=== PATIENT | female | born 1970 | race Caucasian/White ===

== ENCOUNTER → 2016-08-28 | Outpatient (CLI) | payer OTHER | END | disposition home or self-care (01) | LOC: GMAJ 10:33 | PROVIDERS: ATTEND Family Medicine | DX: Z79.899 Other long term (current) drug therapy (principal) ==

== ENCOUNTER → 2017-01-18 | Outpatient (CLI) | payer BC | LOC: GMA 21:03 | PROVIDERS: ATTEND Nurse Practitioner Acute Care | DX: N30.00 Acute cystitis without hematuria (principal) ==

== ENCOUNTER → 2017-02-18 | Outpatient (CLI) | payer BC | END | disposition home or self-care (01) | LOC: MAMMO 13:07 | PROVIDERS: ATTEND Obstetrics & Gynecology Female Pelvic Medicine and Reconstructive Surgery | DX: Z12.31 Encounter for screening mammogram for malignant neoplasm of breast (principal) ==

== ENCOUNTER → 2018-04-04 | Outpatient (CLI) | payer BC ==
--- NOTE | 2018-04-05 17:09 | MAM ---
EXAM DESCRIPTION: 3D Screening BILATERAL : Digital Mammography. CLINICAL HISTORY: 47 years Female ANNUAL SCREENING . No complaints. No personal or family history of breast cancer. Childbirth. Postmenopausal years. No HRT. Lifetime risk of developing breast cancer (Tyrer-Cuzick model)(%): 6.7. COMPARISON: Bilateral screening digital breast tomosynthesis 02/18/2017. TECHNIQUE: Bilateral CC and MLO projection full-field images, digital tomosynthesis mammographic technique. Bilateral digital 2-D full-field MLO images. CAD not available for tomosynthesis or 2-D images. FINDINGS: The breast parenchymal density pattern is: Scattered areas of fibroglandular density. No skin thickening or nipple retraction. Bilateral microcalcifications and coarse calcifications. Small lymph nodes in the right axillary tail. No new focal, stellate mass or density, focal asymmetry , and no suspicious microcalcifications bilaterally. Stable mammograms compared to prior study. IMPRESSION: Benign exam. BIRAD CATEGORY: 2 BENIGN FINDINGS. RECOMMENDATIONS: FOLLOW UP: Routine digital bilateral mammographic screening, one year interval from March 2018. Written communication explaining the IMPRESSION and follow-up, will be mailed to the patient and referring health care provider. According to the [employer], yearly mammograms are recommended starting at age 40 and continuing as long as a woman is in good health. Any breast change noted on a breast self-exam should be reported promptly to the patient's healthcare provider. Breast MRI is recommended for women with an approximately 20-25% or greater lifetime risk of breast cancer, including women with a strong family history of breast or ovarian cancer and women who have been treated for Hodgkin's disease. A negative mammographic report should not delay tissue diagnosis in patients with significant clinical history or physical findings. Extremely dense breast tissue limits the sensitivity of digital mammography. Electronically signed by: Quinton Marcelino MD 04/05/2018 5:06 PM [employer]ESSURE SUPERVISOR
== END ==
LOC: MAMMO 13:01
PROVIDERS: ATTEND Obstetrics & Gynecology Female Pelvic Medicine and Reconstructive Surgery
DX: Z12.31 Encounter for screening mammogram for malignant neoplasm of breast (principal)

== ENCOUNTER → 2018-09-09 | Outpatient (CLI) | payer BC ==
--- NOTE | 2018-09-09 13:47 | MRI ---
EXAM DESCRIPTION: Knee,Left CLINICAL HISTORY: PAIN IN LEFT KNEE COMPARISON: Left knee radiograph 08/18/2018.. TECHNIQUE: MRI of the left knee is performed with multiplanar multi sequence imaging, without intravenous contrast. FINDINGS: Bone and joint: No focal bony contusion or acute fracture. Partially joint effusion is present. Cartilage: Grade 2-3 chondromalacia of the lateral knee compartment. Patchy areas of near full-thickness cartilage loss at the medial knee compartment. Grade 3 chondral fissuring of the patellar apex and patella facet. Medial meniscus: Displaced posterior horn medial meniscus tear with displaced meniscal fragment within the intercondylar notch anterior to the PCL. Lateral meniscus: Intact Anterior cruciate ligament: Intact Posterior cruciate ligament:Intact Medial collateral ligament:Intact. Mild periligamentous edema medial collateral ligament, nonspecific but likely represents a grade 1 MCL sprain. Lateral collateral ligament:Intact Popliteus tendon: Intact Biceps femoris tendon: Intact Iliotibial band: Intact Medial and lateral retinaculum: Intact Extensor mechanism: Distal quadriceps and patellar tendons are intact. Mild distal patellar tendinosis. Soft tissues: No Henderson's cyst. No solid or cystic mass. Mild prepatellar edema. IMPRESSION: 1. Left medial meniscus posterior horn tear with displaced meniscal fragment into the intercondylar notch. 2. Grade 1 MCL sprain. 3. Moderate left knee osteoarthrosis with high-grade chondrosis involving the medial knee compartment. Associated moderate size knee joint effusion. 4. Mild prepatellar bursitis. Electronically signed by: Mathew Lund DO 09/09/2018 1:46 PM CDT
== END ==
LOC: MRI 07:58
PROVIDERS: ATTEND Family Medicine
DX: S83.242A Other tear of medial meniscus, current injury, left knee, initial encounter (principal); S83.412A Sprain of medial collateral ligament of left knee, initial encounter; M17.12 Unilateral primary osteoarthritis, left knee; M70.42 Prepatellar bursitis, left knee

== ENCOUNTER → 2018-09-15 | Outpatient (CLI) | payer BC ==
--- NOTE | 2018-09-15 10:42 | RAD ---
EXAM DESCRIPTION: Knee,Left 1 or 2 Views CLINICAL HISTORY: 47 years Female, M25.562 TECHNIQUE: 2 views of the left knee were performed. COMPARISON: None available. FINDINGS: The visualized bones appear well mineralized. No acute fracture or dislocation. The medial and lateral compartment joint space are well-maintained. The soft tissues appear grossly unremarkable. IMPRESSION: 1. No acute fracture or dislocation. Electronically signed by: Albert Geronimo MD 09/15/2018 10:40 AM CDT
--- NOTE | 2018-09-15 11:01 | RAD ---
EXAM DESCRIPTION: Pelvis CLINICAL HISTORY: 47 years Female, M25.562 COMPARISON: CT abdomen pelvis dated June 13, 2014. TECHNIQUE: AP radiograph of the pelvis was performed. FINDINGS: The pelvic ring appears grossly intact on this single AP radiograph. Bilateral sacroiliac joints appear normal. Bilateral hip joints appear normal. The visualized lumbo-sacral spine appears grossly unremarkable. IMPRESSION: Single AP radiograph of the pelvis demonstrates grossly intact pelvic ring. Electronically signed by: Albert Geronimo MD 09/15/2018 10:59 AM CDT
== END ==
LOC: RAD 08:09
PROVIDERS: ATTEND Orthopaedic Surgery
DX: M25.562 Pain in left knee (principal); M25.552 Pain in left hip

== ENCOUNTER → 2018-09-26 | Outpatient (CLI) | payer BC | LOC: LAB.O 11:57 | PROVIDERS: ATTEND Orthopaedic Surgery | DX: Z01.818 Encounter for other preprocedural examination (principal) ==

== ENCOUNTER 2018-10-05 05:26 | Day surgery (SDC) | payer BC ==
[2018-10-05] MEDS ORDERED: PROPOFOL 200 MG/20 ML VIAL IV ONE (07:00)
[2018-10-05] MEDS ORDERED: KETOROLAC TROMETHAMINE INJ 30 MG/ML VIAL ONE (07:00)
[2018-10-05] MEDS ORDERED: ONDANSETRON INJ 4 MG/2 ML VIAL ONE (07:00)
[2018-10-05] MEDS ORDERED: raNITIdine HCL INJ 25 MG/ML VIAL ONE (07:00)
[2018-10-05] MEDS ORDERED: METOCLOPRAMIDE HCL INJ 10 MG/2 ML VIAL ONE (07:00)
[2018-10-05] MEDS ORDERED: DEXAMETHASONE INJ 10 MG/ML VIAL ONE (07:00)
[2018-10-05] MEDS ORDERED: SODIUM CHL 0.9% 100ML MINI-BAG 100 ML IVPB ONE (09:14)
[2018-10-05] MEDS ORDERED: ceFAZolin SODIUM 1 GM VIAL ONE ×2 (09:14→13:47)
[2018-10-05] MEDS ORDERED: LACTATED RINGERS 1,000 ML ONE (09:14)
[2018-10-05] MEDS ORDERED: MIDAZOLAM INJ 2 MG/2 ML VIAL ONE (13:42)
[2018-10-05] MEDS ORDERED: fentaNYL CITRATE INJ 50 MCG/ML AMP ONE (13:43)
[2018-10-05] MEDS: ceFAZolin SODIUM 1 GM VIAL ONE ×2 (14:32→14:59)
[2018-10-05] MEDS: BUPIVACAINE LIPOSOME 13.3 MG/ML VIAL INJ ONE ×2 (14:32→14:59)
[2018-10-05] MEDS: BUPIVACAINE 0.5% 30 ML VIAL INJ ONE ×2 (14:32→14:59)
[2018-10-05] MEDS: VANCOMYCIN HCL INJ 1,000 MG VIAL IVPB ONE ×2 (14:33→14:59)
[2018-10-05] MEDS ORDERED: HYDROmorphone HCL INJ 2 MG/ML VIAL ONE (15:28)
[2018-10-05] MEDS ORDERED: MEPERIDINE HCL 50 MG/ML VIAL ONE (15:33)
[2018-10-05] MEDS ORDERED: HYDROcodone 5MG/APAP 325MG 1 EA TAB ONE (16:16)
[2018-10-05] MEDS ORDERED: HYDROcodone 5MG/APAP 325MG 1 EA TAB PO ONE (16:20)
[2018-10-05 16:33] VITALS: BP 104/73
[2018-10-05 17:56] VITALS: TEMP 97.5; O2SAT 99
== END 2018-10-05 17:35 | disposition home or self-care (01) ==
LOC: AMB 05:26
PROVIDERS: ATTEND Orthopaedic Surgery
DX: M25.562 Pain in left knee (principal); M23.42 Loose body in knee, left knee; S83.412A Sprain of medial collateral ligament of left knee, initial encounter; Z90.710 Acquired absence of both cervix and uterus; Z90.49 Acquired absence of other specified parts of digestive tract
CPT/HCPCS: 01400; 29877; 80307; J0690; J1100; J1170; J1885; J2175; J2250; J2405; J2765; J2780; J3010; J3370; J3490; J7050; J7120

== ENCOUNTER → 2019-04-20 | Outpatient (CLI) | payer BC | DX: Z12.31 Encounter for screening mammogram for malignant neoplasm of breast (principal) ==